=== PATIENT | male | born 1985 | race Caucasian/White ===

== ENCOUNTER 2024-10-21 12:46 | Emergency (ER) | payer BC, SELFPAY ==
[2024-10-21 12:55] VITALS: BP 115/73
[2024-10-21 12:56] VITALS: BMI 25.6
--- NOTE | 2024-10-21 13:32 | ED.GENMED ---
History of Present Illness
General
Chief Complaint: Breathing Problem
Source: patient
Time Seen by Provider: 10/21/24 13:00
History of Present Illness
History of Present Illness:
This patient is a 39-year-old male who states that he works cleaning ducts using suction/vacuum. While performing his duties today, o a ladder, he states that had some dust that went into his face and he started to feel like he was developing
asthma symptoms including shortness of breath and feeling like his chest was closing up. He quickly came down for the latter and uses albuterol inhaler x 2 puffs. After that, he started to describe intense anxiety associated with hyperventilation,
and starting to feel like he is 'losing it'. He felt very panicked as he describes it, associated with dyspnea, chest tightness, and extreme anxiety. Since arrival, he is starting to feel much better but not fully resolved of his anxiety. He
denies current chest vert or dyspnea. Recently he notes that his urine has been dark compared to usual and he has been trying to drink more. He suspects he is dehydrated. He denies bleeding, light stool, jaundice, fever, chills, abdominal pain,
nausea, vomiting, anorexia, weight loss, or other complaints.
Past History
Past History
ED Past Medical History: Other (Asthma, depression anxiety, opioid use disorder)
ED Past Surgical History: Appendectomy, Orthopedic and Other (Dental)
Social History
Tobacco: Vaping
Alcohol: None
Drug: Other (In recovery)
Employment: Employed
Phy Exam
Physical Exam
Physical Exam:
GENERAL: Alert , in no apparent distress
EYE: pupils equal and reactive
NECK: Supple, no significant adenopathy.
ENT: o/p clr, mm slightly dry
CARDIAC: Regular rate and rhythm, tachycardic.
LUNGS: Clear breath sounds bilaterally, no acute respiratory distress, no wheezes/rales/rhonchi
ABDOMEN: Soft, without focal tenderness, no r/g, no cvat
NEUROLOGICAL: Alert and oriented, no focal neuro deficits
SKIN: Warm and dry, skin intact.
MUSCULOSKELETAL: No edema, well perfused.
PSYCH: Pleasant but appears anxious
Course
Orders/Labs/Results
Orders:
Orders
10/21/24 12:54
Electrocardiogram (*1) Urgent
Reason for Study: Shortness of Breath
EKG- Treatment ONCE
10/21/24 13:16
CPK [Creatine Phosphokinase] Urgent
Complete Blood Count/No Diff Urgent
Comprehensive Metabolic Panel Urgent
10/21/24 14:23
0.9% Sodium Chloride 1000 ml [Nss] 1,000 ml IV BOLUS
US Kidneys and US Bladder [US Renal With Bladder] Urgent
Comment:
Reason For Exam: renal insuffic
10/21/24 14:34
Urinalysis Reflex To Culture Urgent
Date Specimen was Collected: 10/21/24
Time Specimen was Collected: 14:28
Urine Microscopic Reflex Cult Urgent
Urine Culture Urgent
WAGNER Source: U
Specimen Description:
Date Specimen was Collected: 10/21/24
Time Specimen was Collected: 14:28
Abnormal Lab Results
10/21/24 10/21/24
13:16 14:34
Hgb 18.9 H g/dL
(13.0-18.0)
Hct 52.4 H %
(39.0-52.0)
MCH 31.1 H pg
(27.0-31.0)
MPV 10.6 H fL
(7.4-10.4)
Carbon Dioxide 20 L mmol/L
(22-30)
BUN 28 H mg/dl
(9-20)
Creatinine 1.7 H mg/dL
(0.7-1.3)
Calcium 10.5 H mg/dl
(8.4-10.2)
Total Bilirubin 1.7 H mg/dl
(0.2-1.3)
ALT 69 H U/L
(0-50)
Creatine Kinase 177 H U/L
(55-170)
Albumin 5.4 H g/dl
(3.5-5.0)
Urine Ketones 2+ A
(Negative)
Urine Bacteria (Reflex) Moderate A
(Negative)
Urine Albumin (Reflex) 2+ A
(Neg - Trace)
10/21/24 13:16
10/21/24 13:16
Vital Signs
Initial and Last Documented VS:
Initial Vital Signs
Temp
98.6 F
10/21/24 12:49
Last Documented Vital Signs
Temp Pulse Resp BP Pulse Ox
98.6 F 121 18 115/73 100
10/21/24 12:49 10/21/24 13:00 10/21/24 13:00 10/21/24 12:55 10/21/24 13:35
*Pulse Oximetry
SaO2: 100
Patient hypoxic: no
*Critical Care Note
Total Time (30-74mins, 75-104mins- exclusive of procedures): Not Applicable
Update Note
Update Note:
Patient presents to the Emergency Department with ___shortness of breath, chest tightness, hyperventilation, and anxiety
Number and Complexity of Problems Addressed at the Encounter
� Chronic conditions affecting care:
� Acute Exacerbation and/or Progression of Chronic Illness:
� Differential Diagnosis includes: But not limited to allergen exposure, bronchospasm, anxiety, etc. etc.
Amount and/or Complexity of Data to be Reviewed and Analyzed
� I performed an independent evaluation of and my interpretation is:
EKG: Read by me, sinus tachycardia, no acute ischemia
CT:
Xrays:
Laboratory Studies:
Other:us No evidence for pelvicalyceal dilation. Preservation of renal parenchymal thickness bilaterally.
Minimally complex Bosniak class II cyst arising in the lateral lower right kidney, for which no further imaging follow-up is recommended.
No focal abnormality of the bladder, which is not distended. Bilateral ureteral jets are demonstrated. Postvoid bladder residual with estimated volume of 6 cc.
� Review of other/old records reveals:
� Clinical information was obtained by an independent historian:
� Prescriptions/Medications Considered but not given:
� Further testing considered but not performed:
Risk of Complications and/or Morbidity or Mortality of Patient Management
� Social determinants of health affecting care:
� Discussion with other providers (PCP, Hospitalists, Consultants, etc):
� Escalation of care including admission/observation vs risk of discharge considered:Case discussed with nephrology here (Dr Baez), aware of labs, history, etc. Does not recommend admission, especially given patient with
stable hemodynamics. Recommend recheck of labs next week and encourage hydration.
Patient denies taking any nephrotoxic agents told to avoid buoyed all nonsteroidals, encourage hydration, and importance of close follow-up, labs and ultrasound printed out for him.
ED Attending Note
-
Portions of this chart may have been created with voice recognition software.� Occasional wrong word or��sound alike� substitutions may have occurred due to the inherent limitations of voice recognition software.
Discharge Plan
Departure
Patient Disposition: Home (Routine Discharge)
Date of Disposition: 10/21/24
Time of Disposition: 15:56
Patient with high blood pressure during this ER visit?: No
Condition: Good
Discharge Problem:
Dehydration, Acute renal insufficiency
Instructions: Acute kidney injury, Dehydration in adults - ED discharge instructions
Referrals:
UNKNOWN - PT DOES,NOT KNOW [Family Provider]
Activity Restrictions/Additional Instructions:
PLEASE AVOID ALL ANTI-INFLAMMATORY MEDICATIONS SUCH MOTRIN ALEVE AND IBUPROFEN UNTIL OTHERWISE ADVISED IT IS OKAY TO DO SO. IS IMPORTANT THAT YOU MAINTAIN ADEQUATE HYDRATION. IF YOU DEVELOP FEVER, FLANK PAIN, DIFFICULTY URINATING, PAIN WITH
URINATION, DECREASED URINATION, BLEEDING, CHANGE IN THE COLOR OF YOUR URINE, ABDOMINAL PAIN, GET WORSE, DO NOT GET BETTER, OR OTHER WORRISOME SIGNS, PLEASE RETURN TO THE ER IMMEDIATELY!YOU MUST FOLLOW-UP WITH YOUR DOCTOR EARLY NEXT WEEK FOR REPEAT
BLOOD TESTING TO EVALUATE YOUR KIDNEY FUNCTION. PLEASE REFERENCE THE ULTRASOUND AND LABS THAT WE HAVE PRINTED OUT FOR YOU TODAY
Interventions
Interventions:
*Risk Screen - Suicide Last Done: 10/21/24 12:53
*General Assessment Last Done: 10/21/24 12:53
*Neglect/Abuse Screening Last Done: 10/21/24 12:53
*ED COVID-19 Vaccine History Last Done: 10/21/24 12:54
ED- Cardiac Assessment Last Done: 10/21/24 12:55
ED- Pulmonary Assessment Last Done: 10/21/24 13:05
Discharge Date and Time
Print Language: FAROESE
[2024-10-21 13:33] LABS: Hematocrit 52.4 % (39.0-52.0); Hemoglobin 18.9 g/dL (13.0-18.0); Mean Corp Hgb Conc. 36.1 g/dL (33.0-37.0); Mean Corpuscular Volume 86.2 fL (80.0-94.0); Platelet Count 273 10^3/uL (130-400); Red Cell Dist. Width 11.7 % (11.5-14.5)
[2024-10-21 14:00] LABS: ALT (SGPT) 69 U/L (0-50); AST (SGOT) 43 U/L (17-59); Albumin 5.4 g/dl (3.5-5.0); Alkaline Phosphatase 75 U/L (38-126); Blood Urea Nitrogen 28 mg/dl (9-20); Calcium 10.5 mg/dl (8.4-10.2); Carbon Dioxide 20 mmol/L (22-30); Chloride 107 mmol/L (98-107); Estimated Creatinine Clearance 63 ml/min; Glucose 72 mg/dl (70-99); Potassium 4.6 mmol/L (3.5-5.1); Sodium 141 mmol/L (135-145); Total Protein 7.8 g/dl (6.3-8.2); eGFR 52.59
[2024-10-21] MEDS: NSS 1000 IV (14:34)
[2024-10-21 14:44] LABS: Urine Character Slightly Cloudy (Clear)
[2024-10-21 14:56] LABS: Urine Squamous Cell 0-2 /LPF (Few)
[2024-10-21 14:58] LABS: Urine Red Blood Cell 0-2 /HPF (0-2)
== END 2024-10-21 16:51 | disposition home or self-care (01) ==
LOC: EMR 12:46
PROVIDERS: EMERGENCY PHYSICIAN Emergency Medicine
DX: R06.02 Shortness of breath (principal); R07.89 Other chest pain; N28.9 Disorder of kidney and ureter, unspecified; E86.0 Dehydration; Z57.2 Occupational exposure to dust; X58.XXXA Exposure to other specified factors, initial encounter; Y93.89 Activity, other specified; Y92.89 Other specified places as the place of occurrence of the external cause; Y99.0 Civilian activity done for income or pay; J45.909 Unspecified asthma, uncomplicated; F41.9 Anxiety disorder, unspecified; F32.A Depression, unspecified; F17.290 Nicotine dependence, other tobacco product, uncomplicated
CPT/HCPCS: 99284; 96360; 76770; 80053; 81003; 81015; 82550; 85027; 87086; 93005